=== PATIENT | female | born 1995 | race American Indian/Alaskan Native ===

== ENCOUNTER 2016-11-11 18:21 | Emergency (ER) | payer SELFPAY ==
[2016-11-11 18:37] VITALS: BP 127/83
[2016-11-11] MEDS ORDERED: NORCO 5/325 PO ONE (19:28)
--- NOTE | 2016-11-11 20:20 | XRay Report ---
FINAL REPORT EXAM: XR HAND 3 RT HISTORY: injury to 4th and 5th digits, finger pain TECHNIQUE: Right hand three views PRIORS: None. FINDINGS: There is acute traumatic incomplete fracture base of the 5th distal phalanx extending to the articular surface without displacement seen best on the lateral view. No additional acute bony abnormalities are identified. Carpal bones maintain normal alignment. Distal radius and ulna are intact. No evidence for dislocation. No radiopaque foreign body seen. IMPRESSION: Nondisplaced fracture base of the 5th distal phalanx
--- NOTE | 2016-11-11 20:39 | Emergency Department Report ---
Entered by NICKIE TRACY, acting as scribe for JULIO CESAR GALLO PA. Upper Extremity - HPI Chief Complaint: Extremity Injury, Upper Stated Complaint: FINGER INJURY Time Seen by Provider: 11/11/16 19:19 Upper Extremity: Right Ring Finger, Right Little Finger Occurred When: >5 Days (1 week ago) Mechanism: Other (hit something with fist) Severity: moderate Symptoms: Yes Pain with Movement (right hand pain and fourth and fifth digit pain to her right hand), Yes Swelling (right fourth and fifth digit), No Deformity, No Limited Range of Movement, No Numbness, No Weakness, No Bruising/ Ecchymosis, No Laceration or Abrasion Other History: 20 y/o female with PMHx of asthma presents to the ED c/o pinky finger and ring finger pain that began last week after she hit object with fist. Associated symptoms include swelling and pain to right fourth and fifth digit but she denies fever and chills. Pain is described as 10/10 on a severity scale. No alleviating factors despite splinting and icing fingers. Pain is worse with movement. Denies any weakness, numbness or tingling to right hand. ED Review of Systems ROS: Stated complaint: FINGER INJURY Other details as noted in HPI Comment: All other systems reviewed and negative Constitutional: denies: chills, fever, weakness Respiratory: no symptoms reported Cardiovascular: denies: chest pain, palpitations, edema, syncope Gastrointestinal: denies: nausea, vomiting Musculoskeletal: arthralgia, other (pinky finger and ring finger pain and swelling). denies: back pain, joint swelling Skin: denies: rash Neurological: denies: headache, weakness, numbness, paresthesias, confusion, abnormal gait, vertigo ED Past Medical Hx - Past Medical History Previous Medical History?: Yes Hx Asthma: Yes - Surgical History Past Surgical History?: No - Family History Family history: hypertension - Social History Smoking Status: Never Smoker Substance Use Type: None - Medications Home Medications: Home Medications Medication Instructions Recorded Confirmed Last Taken Type Ibuprofen [Motrin] 600 mg PO Q8H PRN #15 tablet 11/11/16 Unknown Rx Upper Extremity Exam - Exam General: Vital signs noted. No distress. Alert and acting appropriately. This is a 20-year-old female well-nourished well-developed in no acute distress. Head and Torso: No HEENT Abnormality (head normocephalic atraumatic, no bruising , contusion, abrasion or laceration), No Neck Tenderness (supple, full range of motion and no C-spine tenderness.), No Chest/Lungs Abnormality (clear to auscultate bilaterally, no rhonchi wheezes or rales, no chest wall tenderness and normal work of breathing), No Abdominal Tenderness (soft, nontender to palpate in all quadrant, normal bowel sounds in all quadrants), No Back Tenderness (normal inspection, full range of motion, no vertebral or paraspinal tenderness.) Shoulder Exam: Yes Normal Range of Motion in Shoulder, No Shoulder Tenderness, No Clavicle Tenderness, No Shoulder Deformity, No AC Joint Tenderness Arm Exam: No Arm/Humerus Tenderness, No Arm Deformity Elbow: Yes Normal Range of Motion in Elbow, No Elbow Tenderness, No Elbow Deformity Forearm: No Forearm Tenderness, No Forearm Deformity, No Pain with Pronation, No Pain with Supination Wrist: Yes Normal ROM in Wrist, No Wrist Tenderness, No Wrist Deformity, No Snuffbox Tenderness, No Pain with Axial Thumb Compression Hand: Yes Digit Tenderness (tender to palpate to right fourth and fifth digit proximal phalanx), Yes Normal ROM in Digit(s), No Hand Tenderness, No Hand Deformity, No Digit(s) Deformity (right 4th and 5th finger mild swelling, tender to palpate), No Tendon Dysfunction CMS Exam: Yes Normal Distal Pulses, Yes Normal Capillary Refill, Yes Normal Distal Sensation, No Broken Skin ED Course Vital Signs 11/11/16 18:30 Temperature 98.5 F Pulse Rate 88 Respiratory 16 Rate Blood Pressure 127/83 O2 Sat by Pulse 95 Oximetry - Reevaluation(s) Reevaluation #1: 11/11/16 20:06 Patient received [place] 5/325 mg 2 tablets in emergency room for pain. - Orthopedic Splinting/Casting Injury #1 Side: right Upper Extremity Injury Location: finger Upper Extremity Immobilizer: aluminum form splint, finger (other) ED Medical Decision Making - Radiology Data Radiology results: report reviewed X-ray of rt hand reveal nondisplaced fracture at the base of the distal fifth phalanx - Medical Decision Making ED course: She here status post hit in hard object with right hand. This happened one week ago and x-ray report revealed that she has a nondisplaced fracture of the base of her distal fifth phalanx. She was given [place] 5/325 mg 2 tablets emergency room and she was significantly for pain. He procedure note for splinting in detail. Patient discharged home with prescription for Motrin and to follow-up with orthopedic doctor in 5 days. She was noticed on the discharge diagnosis and treatment plan discharge home in stable condition with her family member. Critical care attestation.: If time is entered above; I have spent that time in minutes in the direct care of this critically ill patient, excluding procedure time. ED Disposition Clinical Impression: Finger pain, right Fracture, finger, distal phalanx Qualifiers: Encounter type: initial encounter Finger: ring finger Fracture type: closed Fracture alignment: nondisplaced Laterality: right Qualified Code(s): S62.664A - Nondisplaced fracture of distal phalanx of right ring finger, initial encounter for closed fracture Injury of finger of right hand Qualifiers: Encounter type: initial encounter Qualified Code(s): S69.91XA - Unspecified injury of right wrist, hand and finger(s), initial encounter Disposition: DC-01 TO HOME OR SELFCARE Is pt being admited?: No Does the pt Need Aspirin: No Condition: Stable Instructions: Arthralgia (ED), Finger Fracture (ED), Splint Care (ED) Additional Instructions: Please follow discharge instruction on splint care Follow up with orthopedic doctor as recommended Prescriptions: Ibuprofen [Motrin] 600 mg PO Q8H PRN #15 tablet PRN Reason: Pain Referrals: LUIS MANUEL DOMINIQUE MD [Staff Physician] - 11/16/16 Forms: Work/School Release Form(ED) This documentation as recorded by the DEMARCUS lawton ELIZABETH,accurately reflects the service I personally performed and the decisions made by ,JULIO CESAR GALLO PA.
== END 2016-11-11 20:41 | disposition home or self-care (01) ==
LOC: ED 18:21
DX: S62.664A Nondisplaced fracture of distal phalanx of right ring finger, initial encounter for closed fracture (principal); J45.909 Unspecified asthma, uncomplicated; W22.8XXA Striking against or struck by other objects, initial encounter; Y93.9 Activity, unspecified; Y92.9 Unspecified place or not applicable; Y99.9 Unspecified external cause status
CPT/HCPCS: 99283